=== PATIENT | male | born 1965 | race Caucasian/White ===

== ENCOUNTER 2023-09-19 09:30 | Outpatient (CLI) | payer OTHER, SELFPAY ==
--- NOTE | ~2023-09-19 | MR_ITS ---
MRI of the left knee Clinical history: Pain Technique: Coronal proton density and proton density-weighted images, sagittal proton-density and T2 fat-sat images, and axial proton-density fat-saturated images were acquired. Findings: Anterior and posterior cruciate ligaments are intact. Medial collateral ligament and the la teral collateral ligament complex are intact. Popliteus tendon is intact. Medial meniscus is intact, without evidence of tear. Posterior horn and body of the lateral meniscus are completely absent, which could reflect extensive complex tearing versus prior partial meniscecto my. Correlate with any relevant surgical history. 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 Articular cartilage in the medial compartment is well preserved. Th ere is a grade 4 chondral fissure at the central aspect of the femoral trochlea. Patellar articular c artilage demonstrates grade 1 to mild grade II chondromalacia at the apex. Tricompartmental moderate to large osteophyte formation is present. Extensor mechanism is intact. Moderate joint effusion present. No Tena's cyst. Impression: Severe osteoarthritis of the lateral compartment. Mild to moderate degenerative change of the medial and patellofemoral compartments. Posterior horn and body of the lateral meniscus are essentially completely absent. Correlate for comp jer tearing versus prior partial meniscectomy. Correlate with any relevant surgical history. Moderate joint effusion. Reviewed, dictated and finalized at [facility]. [employer] Impression: Severe osteoarthritis of the lateral compartment. Mild to moderate degenerative change of the medial and patellofemoral compartments. Posterior horn and body of the lateral meniscus are essentially completely abse nt. Correlate for complex tearing versus prior partial meniscectomy. Correlate with any relevant surgical history. Moderate joint effusion.
== END 2023-09-19 09:31 | disposition home or self-care (01) ==
LOC: ANHIMG 09:34
PROVIDERS: PCP Physician Assistant Medical; Visit Provider Nurse Practitioner Family
DX: M25.462 Effusion, left knee (principal)
CPT/HCPCS: 73721